=== PATIENT | female | born 1980 | race Caucasian/White ===

== ENCOUNTER → 2021-03-05 | Day surgery (SDC) | payer OTHER ==
[~2021-03-05] VITALS: Ht 162.6 cm; Wt 68.0 kg
[~2021-03-05] MED LIST: NORCO 5-325 TA1 EACH PO; PREDNISONE50 MG PO; ROBAXIN750 MG PO; TRAMADOL HCL50 MG PO
[2021-03-05 08:30] LABS: HCG (URINE) SCREEN NEGATIVE (NEGATIVE)
[2021-03-05 08:40] LABS: HGB 14.1 g/dl (12.5-16.0); MCH 32.2 pg (25.0-31.0); MCHC 33.6 g/dL (32.0-36.0); MCV 95.9 fL (78.0-100.0); MPV 9.5 fL (6.0-9.5); RBC 4.38 M/uL (4.20-5.40); RDW 13.3 % (11.5-14.0); WBC 3.7 K/uL (4.0-10.5)
== END | disposition home or self-care (01) ==
LOC: FAS 08:00
PROVIDERS: Obstetrics & Gynecology
DX: N71.1 Chronic inflammatory disease of uterus (principal); M19.90 Unspecified osteoarthritis, unspecified site; F17.200 Nicotine dependence, unspecified, uncomplicated; Z80.41 Family history of malignant neoplasm of ovary
CPT/HCPCS: 36415; 84703; 86850; 86900; 86901; J1885; J2250; J2704; J3010; J7120

== ENCOUNTER 2021-11-15 12:21 | Emergency (ER) | payer OTHER ==
[2021-11-15 13:20] LABS: BUN/CREAT RATIO (CALC) 21.4 RATIO; CREATININE 0.56 mg/dL (0.51-0.95); POTASSIUM 3.9 mmol/L (3.5-5.1)
[2021-11-15 13:22] LABS: BASOPHIL 0.4 % (0-2); EOSINOPHIL 1.2 % (0-5); HCT 44.6 % (37.0-47.0); LYMPHOCYTE 16.1 % (15-48); MCH 31.8 pg (25.0-31.0); MCHC 33.6 g/dL (32.0-36.0); MCV 94.7 fL (78.0-100.0); MONOCYTE 5.4 % (0-12); MPV 9.2 fL (6.0-9.5); NEUTROPHIL 76.2 % (41-80); NRBC 0; PLT 388 K/uL (150-400); RBC 4.71 M/uL (4.20-5.40); RDW 13.5 % (11.5-14.0); WBC 16.8 K/uL (4.0-10.5)
== END 2021-11-15 15:18 | disposition home or self-care (01) ==
LOC: FER 12:21
PROVIDERS: Emergency Medicine
DX: G43.909 Migraine, unspecified, not intractable, without status migrainosus (principal); Z88.5 Allergy status to narcotic agent
CPT/HCPCS: 36415; 70450; 80048; 85025; J1200; J1885; J2765